=== PATIENT | female | born 1970 | race Caucasian/White ===

== ENCOUNTER 2017-08-30 16:03 | Emergency (ER) ==
[2017-08-30 16:11] VITALS: BP 136/84; TEMP 98; BMI 27.3
[2017-08-30] MEDS ORDERED: AUGMENTIN 875-125 MG TAB PO STA (16:21)
--- NOTE | 2017-08-30 16:25 | ED.PDOC ---
General ED Provider: Dr. WALT BRYSON-ER Chief Complaint: Bite Stated Complaint: was bitten by a cat--would not give any info about the cat or paper roller--states the cat does not have rabies-- Time Seen by Physician: 16:23 Mode of Arrival: Walk-In Information Source: Patient Exam Limitations: No limitations Nursing and Triage Documentation Reviewed and Agree: Yes Skin Complaint Exam - Laceration/Abrasion/Hand Complaint/Exam Location of Injury: Right, Left, Hand Mechanism of Injury: Puncture, Abrasion Onset/Duration: several hours Symptoms Are: Resolved Initial Severity: Mild Current Severity: None Aggravating: Movement Alleviating: None Associated Signs and Symptoms: Denies: Fever, Chills, Erythema, Numbness, Tingling Differential Diagnoses: Bite Injury Review of Systems - Review Of Systems Constitutional: Reports: No symptoms Eyes: Reports: No symptoms Ears, Nose, Mouth, Throat: Reports: No symptoms Respiratory: Reports: No symptoms Cardiac: Reports: No symptoms GI: Reports: No symptoms : Reports: No symptoms Musculoskeletal: Reports: No symptoms Skin: Reports: Bruising, Other (noted abrasions and puncture wounds over hands-- she has good flexion and extension of digits--no evidence of tendon involvement..no cellulitis) Neurological: Reports: No symptoms Endocrine: Reports: No symptoms Hematologic/Lymphatic: Reports: No symptoms All Other Systems: Reviewed and Negative Past Medical History - Past Medical History Previously Healthy: No Endocrine: Reports: Unknown Cardiovascular: Reports: Unknown Respiratory: Reports: Unknown Hematological: Reports: Unknown Gastrointestinal: Reports: Unknown Genitourinary: Reports: Unknown Neuro/Psych: Reports: Unknown Musculoskeletal: Reports: Unknown Cancer: Reports: Unknown Last Menstrual Period: HYSTERECTOMY - Surgical History General Surgical History: Reports: Unknown - Family History Family History: Reports: Unknown - Social History Smoking Status: Former smoker Hx Substance Use: No Alcohol Screening: None - Immunizations Tetanus Shot up to Date: Yes Physical Exam - Physical Exam Appearance: Well-appearing Pain Distress: Mild Eyes: CHARLY ENT: Ears normal, Nose normal, Oropharynx normal Neck: Supple Respiratory: Airway patent Cardiovascular: RRR GI/: Soft Musculoskeletal: Normal strength, ROM intact, No edema, No calf tenderness Skin: Warm, Dry (noted abrasions and puncture wounds noted over hands--) Neurological: Sensation intact, Motor intact, Reflexes intact, Cranial nerves intact, Alert, Oriented Psychiatric: Affect appropriate, Mood appropriate Critical Care Note - Critical Care Note Total Time (mins): 0 Course - Course Orders, Labs, Meds: Orders Category Date Time Status Amoxicillin/Potassium Clav [Augmentin 875-125 mg Tab] MEDS 08/30/17 16:21 Discontinued 1 tab PO ONCE STA Medications Discontinued Medications Generic Name Dose Route Start Last Admin Trade Name Shanta PRN Reason Stop Dose Admin Amoxicillin/Clavulanate Potassium 1 tab 08/30/17 16:21 Augmentin 875-125 Mg Tab PO 08/30/17 16:22 ONCE STA Vital Signs: Temp Pulse Resp BP Pulse Ox 08/30/17 16:04 98.0 F 81 20 136/84 95 Departure - Departure Time of Disposition: 16:26 Disposition: HOME SELF-CARE Discharge Problem: Cat bite of hand Qualifiers: Encounter type: initial encounter Laterality: unspecified laterality Qualified Code(s): S61.459A - Open bite of unspecified hand, initial encounter; W55.01XA - Bitten by cat, initial encounter; W55.01XA - Bitten by cat, initial encounter Instructions: Animal Bite (ED) Condition: Good Pt referred to PMD for follow-up: Yes Additional Instructions: augmentin 875mg bid x 5 days--continue cleaning with soap and water--motrin for pain--seek care if any redness, swelling or fever Allergies/Adverse Reactions: Allergies No Known Allergies Allergy (Unverified 08/30/17 16:11) Home Medications: Ambulatory Orders Atorvastatin Calcium [Lipitor] 40 mg PO DAILY 08/30/17 Diclofenac Sodium 75 mg PO DAILY 08/30/17 Escitalopram Oxalate [Lexapro] 10 mg PO DAILY 08/30/17 Gemfibrozil [Lopid] 600 mg PO DAILY 08/30/17 Glipizide [Glipizide Xl] 2.5 mg PO DAILY 08/30/17 Icosapent Ethyl [Vascepa] 1 gm PO DAILY 08/30/17 Losartan Potassium [Cozaar] 50 mg PO DAILY 08/30/17 Metformin HCl 500 mg PO DAILY 08/30/17 Metoprolol Tartrate 25 mg PO DAILY 08/30/17 Sitagliptin Phosphate [Januvia] 100 mg PO DAILY 08/30/17 Disposition Discussed With: Patient, Family
== END 2017-08-30 16:40 | disposition home or self-care (01) ==
LOC: ED 16:03
DX: S61.451A Open bite of right hand, initial encounter (principal); S61.452A Open bite of left hand, initial encounter; W55.01XA Bitten by cat, initial encounter
CPT/HCPCS: 99283